=== PATIENT | male | born 1960 | race Caucasian/White ===

== ENCOUNTER 2025-03-09 14:30 | Emergency (ER) | payer BC ==
[2025-03-09 15:57] LABS: Anion Gap 16 mmol/L (10-20); BUN (Urea Nitrogen) 16 mg/dL (8.4-25.7); Calc. Creatinine Clearance 0 mL/min (70-130); Calcium 9.5 mg/dL (7.8-10.44); Carbon Dioxide 22 mmol/L (23-31); Chloride 102 mmol/L (98-107); Glucose 120 mg/dL (80-115); Potassium 4.3 mmol/L (3.5-5.1); Sodium 136 mmol/L (136-145)
[2025-03-09] MEDS ORDERED: niCARdipine 25 MG/10 ML SDV ONE (16:51)
[2025-03-09 17:17] LABS: Glucose, Urine (Dipstick) Negative (Negative); Leukocyte Negative (Negative); Protein, Urine (Dipstick) Negative (Neg-Trace); Specific Gravity, Urine 1.010 (1.005-1.030)
[2025-03-09 18:37] LABS: Bacteria/HPF 1+ HPF (None Seen); CAUTI Indications for Culture Spinal Cord Injury; RBC/HPF 0-3 HPF (0-3); WBC/HPF 0-3 HPF (0-3)
[2025-03-09 18:38] LABS: Urine Culture Reflex No No
== END 2025-03-09 17:42 | disposition short-term general hospital (02) ==
LOC: NAV ERS 14:30
DX: I16.1 Hypertensive emergency (principal); N17.9 Acute kidney failure, unspecified; R29.700 NIHSS score 0
CPT/HCPCS: 80048; 81001; J7050